=== PATIENT | male | born 1960 | race Caucasian/White ===

== ENCOUNTER → 2024-10-16 06:47 | Outpatient (REF) | payer OTHER, SELFPAY | LOC: RAD 06:47 | PROVIDERS: ATTENDING PHYSICIAN Registered Nurse Medical-Surgical | DX: R55 Syncope and collapse (principal) | CPT/HCPCS: 93880 ==

== ENCOUNTER → 2024-11-13 10:14 | Outpatient (REF) | payer OTHER, SELFPAY | LOC: RCS 10:14 | PROVIDERS: ATTENDING PHYSICIAN Registered Nurse Medical-Surgical | DX: R55 Syncope and collapse (principal) | CPT/HCPCS: 93225; 93226 ==